=== PATIENT | male | born 1970 | race Caucasian/White ===

== ENCOUNTER 2018-05-16 12:06 | Emergency (ER) | payer MEDICAID ==
[~2018-05-16] VITALS: Ht 180.3 cm; Wt 147.7 kg
[2018-05-16 12:53] VITALS: Ht 180.3 cm; Wt 147.7 kg
[2018-05-16] MEDS ORDERED: GLUCOPHAGE500 MG PO (12:55)
[2018-05-16] MEDS ORDERED: NEURONTIN800 MG PO (12:55)
[2018-05-16] MEDS ORDERED: VISTARIL25 MG (12:55)
[2018-05-16] MEDS ORDERED: ANUSOL-HC25 MG RC (16:42)
[2018-05-16] MEDS ORDERED: TORADOL10 MG PO (16:42)
[2018-05-16] MEDS ORDERED: ANUSOL-HC 2.5%30 GM RC (16:42)
[2018-05-16 17:32] VITALS: BP 123/76
== END 2018-05-16 17:33 | disposition home or self-care (01) ==
LOC: D.ER 12:06
DX: K64.4 Residual hemorrhoidal skin tags (principal); K64.8 Other hemorrhoids; E11.9 Type 2 diabetes mellitus without complications; Z90.5 Acquired absence of kidney; F17.200 Nicotine dependence, unspecified, uncomplicated

== ENCOUNTER 2018-06-12 17:30 | Emergency (ER) | payer MEDICAID ==
[~2018-06-12] VITALS: Ht 180.3 cm; Wt 147.7 kg
[~2018-06-12 17:30] MED LIST: ANUSOL-HC 2.5%30 GM RC; ANUSOL-HC25 MG RC; GLUCOPHAGE500 MG PO; NEURONTIN800 MG PO; TORADOL10 MG PO; VISTARIL25 MG
[2018-06-12 17:37] VITALS: Ht 180.3 cm; Wt 147.7 kg
[2018-06-12] MEDS ORDERED: NEURONTIN800 MG PO (17:39)
[2018-06-12] MEDS ORDERED: LIPITOR10 MG PO (17:40)
[2018-06-12 18:01] LABS: BASOPHILS 0.4 % (0-2); EOSINOPHILS 1.2 % (0-7); HEMATOCRIT 46.2 % (42.0-54.0); HEMOGLOBIN 16.6 g/dL (13.5-17.5); IMMATURE GRANULOCYTES 0.3 % (0-5); LYMPHOCYTES 28.8 % (15-50); MCH 33.1 pg (26.0-34.0); MCHC 35.9 g/dL (31.0-37.0); MEAN PLATELET VOLUME 12.3 fL (7.4-10.4); MONOCYTES 9.7 % (2-11); NEUTROPHILS 59.6 % (40-80); PLATELET COUNT 101 10x3/uL (130-400); RBC 5.02 10x6/uL (4.20-6.10); RDW 12.4 % (11.5-14.5); WBC 7.3 10x3/uL (4.8-10.8)
[2018-06-12 18:16] LABS: APPEARANCE HAZY (CLEAR); BILIRUBIN NEGATIVE (NEGATIVE); COLOR YELLOW (YELLOW); GLUCOSE 1000 mg/dL (NEGATIVE); KETONE NEGATIVE (NEGATIVE); NITRITE NEGATIVE (NEGATIVE); PH 5.5 (5.0-6.0); PROTEIN TRACE mg/dL (NEGATIVE); SPECIFIC GRAVITY 1.015 (1.005-1.020)
[2018-06-12 18:17] LABS: BACTERIA FEW /hpf (NONE SEEN); RED CELLS - URINE 0-5 /hpf (0-5); WHITE CELLS - URINE NSEEN /hpf (0-5); YEAST NONE SEEN /hpf (NONE SEEN)
[2018-06-12 18:18] LABS: AMORPHOUS SEDIMENT <1+ /lpf (NONE SEEN); GRANULAR CAST NONE SEEN /lpf (NONE SEEN); HYALINE CAST NONE SEEN /lpf (NONE SEEN); MUCUS NONE SEEN /lpf (NONE SEEN); RED CELL CAST NONE SEEN /lpf (NONE SEEN); SPERMATOZOA NONE SEEN /hpf (NONE SEEN); WAXY CAST NONE SEEN /lpf (NONE SEEN)
[2018-06-12 19:10] LABS: ALBUMIN 3.3 g/dL (3.4-5.0); ALKALINE PHOSPHATASE 98 U/L (46-116); ALT (SGPT) 39 U/L (10-68); BILIRUBIN - TOTAL 0.61 mg/dL (0.2-1.3); CALC OSMOLALITY 276 mosm/kg (275-300); CALCIUM 8.2 mg/dL (8.5-10.1); CARBON DIOXIDE 24.5 mmol/L (21.0-32.0); CHLORIDE - SERUM 102 mmol/L (98-107); CREATININE - SERUM 0.8 mg/dL (0.6-1.3); GLUCOSE 238 mg/dL (74-106); POTASSIUM - SERUM 4.2 mmol/L (3.5-5.1); PROTEIN - SERUM 7.3 g/dL (6.4-8.2); SODIUM 135 mmol/L (136-145); UREA NITROGEN 11 mg/dL (7-18); eGFR NON AFRICAN AMERICAN > 90 mL/min (90-120)
[2018-06-12 19:16] LABS: AMYLASE - SERUM 58 U/L (25-115); LIPASE 209 U/L (73-393); TROPONIN-I < 0.017 ng/mL (0.000-0.060)
[2018-06-12] MEDS ORDERED: PROTONIX40 MG PO (21:29)
[2018-06-12] MEDS ORDERED: BENTYL 20 MG TA20 MG PO (21:29)
[2018-06-12 22:14] VITALS: BP 133/75
== END 2018-06-12 22:15 | disposition home or self-care (01) ==
LOC: D.ER 17:30
PROVIDERS: Family Medicine
DX: R10.9 Unspecified abdominal pain (principal); K29.70 Gastritis, unspecified, without bleeding; R51 Headache; E11.9 Type 2 diabetes mellitus without complications; F17.200 Nicotine dependence, unspecified, uncomplicated

== ENCOUNTER 2018-10-13 23:20 | Emergency (ER) | payer MEDICARE ==
[~2018-10-13] VITALS: Ht 180.3 cm; Wt 142.9 kg
[~2018-10-13 23:20] MED LIST changes: +BENTYL 20 MG TA20 MG PO; +LIPITOR10 MG PO; +PROTONIX40 MG PO
[2018-10-13 23:26] VITALS: Ht 180.3 cm; Wt 142.9 kg
[2018-10-14 00:21] LABS: APPEARANCE CLEAR (CLEAR); BILIRUBIN NEGATIVE (NEGATIVE); COLOR DK YELLOW (YELLOW); GLUCOSE 500 mg/dL (NEGATIVE); KETONE NEGATIVE (NEGATIVE); NITRITE NEGATIVE (NEGATIVE); PROTEIN NEGATIVE (NEGATIVE); SPECIFIC GRAVITY 1.025 (1.005-1.020)
[2018-10-14] MEDS ORDERED: CYCLOBENZAPRINE10 MG PO (01:27)
[2018-10-14] MEDS ORDERED: EC-NAPROSYN500 MG PO (01:27)
[2018-10-14 02:06] VITALS: BP 130/75
== END 2018-10-14 02:07 | disposition home or self-care (01) ==
LOC: D.ER 23:20
PROVIDERS: Family Medicine
DX: S39.012A Strain of muscle, fascia and tendon of lower back, initial encounter (principal); X58.XXXA Exposure to other specified factors, initial encounter; Y93.89 Activity, other specified; Y92.89 Other specified places as the place of occurrence of the external cause; M54.31 Sciatica, right side; E11.9 Type 2 diabetes mellitus without complications; F17.200 Nicotine dependence, unspecified, uncomplicated

== ENCOUNTER 2019-01-09 23:02 | Emergency (ER) | payer MEDICARE ==
[~2019-01-09] VITALS: Ht 180.3 cm; Wt 139.5 kg
[~2019-01-09 23:02] MED LIST changes: +CYCLOBENZAPRINE10 MG PO; +EC-NAPROSYN500 MG PO
[2019-01-09 23:09] VITALS: Ht 180.3 cm; Wt 139.5 kg
[2019-01-09 23:45] LABS: HEMATOCRIT 43.4 % (42.0-54.0); HEMOGLOBIN 15.7 g/dL (13.5-17.5); LYMPHOCYTES 27.8 % (15-50); MCH 33.5 pg (26.0-34.0); MCHC 36.2 g/dL (31.0-37.0); MCV 92.5 fL (80.0-100.0); MEAN PLATELET VOLUME 9.7 fL (7.4-10.4); NEUTROPHILS 62.4 % (40-80); RBC 4.69 10x6/uL (4.20-6.10); RDW 12.7 % (11.5-14.5); WBC 7.4 10x3/uL (4.8-10.8)
[2019-01-09 23:49] LABS: APTT 24.6 SECONDS (22.8-39.4); INR 1.01 (0.85-1.17); PROTIME 12.8 SECONDS (11.6-15.0)
[2019-01-09 23:53] LABS: PLATELET COUNT 138 10x3/uL (130-400)
[2019-01-10] LABS: ALBUMIN 3.4 g/dL (3.4-5.0); ALKALINE PHOSPHATASE 138 U/L (46-116); ALT (SGPT) 27 U/L (10-68); CALC OSMOLALITY 283 mosm/kg (275-300); CALCIUM 8.4 mg/dL (8.5-10.1); CHLORIDE - SERUM 100 mmol/L (98-107); CREATININE - SERUM 1.1 mg/dL (0.6-1.3); POTASSIUM - SERUM 4.1 mmol/L (3.5-5.1); PROTEIN - SERUM 7.6 g/dL (6.4-8.2); SODIUM 135 mmol/L (136-145); UREA NITROGEN 16 mg/dL (7-18); eGFR NON AFRICAN AMERICAN 75 mL/min (90-120)
[2019-01-10 00:05] LABS: GLUCOSE 324 mg/dL (74-106)
[2019-01-10 00:07] LABS: CKMB 0.3 U/L (0.0-3.6); CREATINE KINASE 86 UL (21-232); MAGNESIUM - SERUM 1.9 mg/dL (1.8-2.4)
[2019-01-10 00:08] LABS: TROPONIN-I < 0.017 ng/mL (0.000-0.060)
[2019-01-10 02:09] LABS: CKMB 0.5 U/L (0.0-3.6); CREATINE KINASE 78 UL (21-232); TROPONIN-I < 0.017 ng/mL (0.000-0.060)
[2019-01-10 02:54] VITALS: BP 140/79
== END 2019-01-10 02:47 | disposition home or self-care (01) ==
LOC: D.ER 23:02
PROVIDERS: Family Medicine
DX: R07.89 Other chest pain (principal); M79.601 Pain in right arm